=== PATIENT | male | born 1975 | race Caucasian/White ===

== ENCOUNTER 2019-07-30 16:57 | Emergency (ER) | payer OTHER ==
[~2019-07-30] VITALS: Ht 167.6 cm; Wt 79.4 kg
[~2019-07-30 16:57] MED LIST: BENTYL 20 MG TA20 M1 PO; CLARITIN10 MG PO; ZOFRAN ODT4 MG PO
[2019-07-30] MEDS ORDERED: KEFLEX500 M1 PO (17:17)
[2019-07-30] MEDS ORDERED: NORCO 5-325 TA1 EAC1 PO (18:12)
[2019-07-30] MEDS ORDERED: BACTRIM DS TAB1 EACH PO (18:12)
[2019-07-30 18:24] VITALS: BP 159/90
== END 2019-07-30 18:25 | disposition home or self-care (01) ==
LOC: M.ERS 16:57
DX: L03.031 Cellulitis of right toe (principal)

== ENCOUNTER 2019-08-02 17:12 | Inpatient (IN) | payer OTHER ==
[~2019-08-02] VITALS: Ht 167.6 cm; Wt 88.5 kg
--- NOTE | ~2019-08-02 | CON ---
[address] [address] CONSULTATION Name: BIN Room: [address] IN M.R.#: [id number] Admission: 08/02/19 Attend Phys: Miki Tai Discharge: Date of : 75 Report #: [id number] THIS REPORT FOR: //name// CC: Caterina White DATE OF SERVICE: 08/03/2019 PODIATRY CONSULTATION REASON FOR ADMISSION: Paronychia, right great toe with subungual hematoma. HISTORY OF PRESENT ILLNESS: The patient is a 44-year-old male that contused the right great toe roughly 8 days ago. The patient dropped a can of viscous on his right great toe roughly 8 days ago. He initially had pain and swelling, which somewhat improved, but then worsened over the next several days, particularly in light of his running and activity. He was placed on outpatient cephalexin with no improvement. He is currently on parenteral vancomycin and ceftriaxone with good tolerance. Blood cultures are negative x 2. There has been no culturable drainage from the toe. At this point, he has very low grade pain, the area is minimally tender to palpation. LABORATORY DATA: WBC 4.3, RBC 4.96, hemoglobin 13.5, hematocrit 40.2, and platelets 226. BUN 16, creatinine 0.9, glucose 105. Albumin 4.2. PHYSICAL EXAMINATION: Subungual hematoma to right hallux with minimal inflammation to the proximal nail fold. There is no drainage, granulation, or pain to palpation. DIAGNOSTIC DATA: X-rays were negative for fracture. The toe is moderately edematous. There is no expressible drainage from the nail unit. Strong pedal pulses, normal epicritic sensation to both extremities. IMPRESSION: Contusion, right great toe with subungual hematoma and cellulitis. PLAN: I recommend total toenail avulsion in my office as an outpatient. In the interim, keep toe dry and clean, no gauze necessary. I will see him later this week in my office for followup. By: [id number] Caal DPM /aaliyah
[~2019-08-02 17:12] MED LIST changes: +BACTRIM DS TAB1 EACH PO; +KEFLEX500 M1 PO; +NORCO 5-325 TA1 EAC1 PO
[2019-08-02 17:35] VITALS: BP 179/119
[2019-08-02 18:56] LABS: ABSOLUTE BASOPHILS 0.1 thou/uL (0.0-0.2); ABSOLUTE EOSINOPHILS 0.1 thou/uL (0.0-0.7); ABSOLUTE LYMPHOCYTES 1.7 thou/uL (0.8-5.3); ABSOLUTE MONOCYTES 0.4 thou/uL (0.0-1.2); ABSOLUTE NEUTROPHILS 2.1 thou/uL (1.6-8.1); BASOPHILS 1.2 %; EOSINOPHILS 2.1 %; HEMATOCRIT 40.2 % (42.0-52.0); HEMOGLOBIN 13.5 gm/dL (14.0-18.0); LYMPHOCYTES 38.7 %; MCH 27.3 pg (26.0-34.0); MCHC 33.7 g/dL (28.0-37.0); MONOCYTES 9.4 %; MPV 7.9 fl. (7.2-11.1); NUCLEATED RBCS 0 /100WBC; PLATELET COUNT* 226 thou/uL (150-400); POLYS 48.6 %; RBC 4.96 mil/uL (4.50-6.00); RDW-CV 12.7 % (10.5-14.5); WBC 4.3 thou/uL (4.0-11.0)
[2019-08-02 19:09] LABS: ALBUMIN 4.2 g/dL (3.4-5.0); CALCIUM 8.8 mg/dL (8.5-10.1); CREATININE 0.9 mg/dL (0.6-1.3); POTASSIUM 3.6 mmol/L (3.5-5.1); TOTAL BILIRUBIN 0.2 mg/dL (<0.1-1.0); TOTAL PROTEIN 7.6 g/dL (6.4-8.2)
[2019-08-02 21:36] VITALS: BP 152/98
[2019-08-02 21:50] VITALS: BP 169/106
--- NOTE | 2019-08-02 21:50 | NUR ---
PT ADMITTED TO FLOOR PER CART ACCOMPANIED BY ER STAFF WITH BELONGINGS. ORIENTED TO ROOM AND CALL LITE, HISTORY OBTAINED AND ASSESSMENT PERFORMED-SEE ADMIT NOTES. PT DENIES PAIN AT PRESENT. AOX4. RFA IV SL, FLUIDS TO BE PLACED ON PUMP FOR INFUSION. R GREAT TOE EDEMATOUS AND RED, TOENAIL BLACK. AMBULATES WITH STEADY GAIT IN ROOM. PT STATES HE IS HUNGRY, BOX LUNCH GIVEN. WILL CONTINUE TO MONITOR AND PROVIDE CARES NEEDED. CALL LITE IN EASY REACH.
[2019-08-03] VITALS: BP 145/90
[2019-08-03] MEDS ORDERED: CLARITIN10 MG PO (03:53)
[2019-08-03] MEDS ORDERED: PROPECIA1 MG (03:54)
[2019-08-03 04:00] VITALS: BP 136/95
--- NOTE | 2019-08-03 05:53 | NUR ---
PT SLEPT WELL AFTER SETTLING IN FROM ADMISSION. RFA IVF INFUSING PER PUMP, IV ABX GIVEN ORDERED. HAS DENIED NEED FOR PAIN MED. UP AD SARAH IN ROOM WITH STEADY GAIT, VOIDING INDEP IN BATHROOM. TOLERATING REGULAR DIET. NO LABS THIS MORNING. ID AND PODIATRY TO SEE PT TODAY. ABLE TO USE CALL LITE AND MAKE NEEDS KNOWN.
[2019-08-03 08:49] VITALS: BP 151/103
[2019-08-03 16:29] VITALS: BP 168/101
--- NOTE | 2019-08-03 16:58 | NUR ---
PT A&Ox4. VITALS STABLE. IV PATENT. DENIED N/V. DENIED PAIN. UP AD SARAH. RIGHT GREAT TOE NAIL IS BLACK AND SWOLLEN. CALL LIGHT WITHIN REACH. WILL CONTINUE TO MONITOR.
[2019-08-03 20:00] VITALS: BP 128/77
--- NOTE | 2019-08-04 05:26 | NUR ---
PT SLEPT WELL OVERNIGHT AFTER RECEIVING TYLENOL FOR HEADACHE AT START OF SHIFT. UP AD SARAH IN ROOM TO BATHROOM TO VOID WITHOUT DIFFICULTY. R FA IVF INFUSING PER PUMP, ABX GIVEN ORDERED. NO LABS THIS MORNING, TO HAVE VANC TROUGH LATER TODAY. ABLE TO USE CALL LITE AND MAKE NEEDS KNOWN. CALL LITE IN E[place]Y [place].
--- NOTE | 2019-08-04 07:47 | CON ---
[address] [address] CONSULTATION Name: BIN Room: [address] IN M.R.#: [id number] Admission: 08/02/19 Attend Phys: Miki Tai Discharge: Date of : 75 Report #: [id number] THIS REPORT FOR: //name// CC: Caterina White DATE OF SERVICE: 08/03/2019 INFECTIOUS DISEASE CONSULTATION ATTENDING PHYSICIAN: Dr. White. REASON FOR EVALUATION: Right great toe cellulitis. HISTORY OF PRESENT ILLNESS: Chart reviewed, patient examined. This is a 44-year-old gentleman without significant medical history who sustained an injury to his right great toe. He was barefoot; he dropped a can of biscuits on it roughly 8 days ago. This was initially quite painful, although he continued to do the activity. In fact, he ran within an hour with his family; however, he noted increasing pain and difficulty walking around Saturday of last week. By , it became quite significant. He had seen his primary care who was concerned about a secondary inflammation, perhaps due to infection. He treated him with cephalexin without benefit. It is not clear that he had any systemic illness. No fevers or chills. Appetite has generally been good. No pulmonary or gastrointestinal related complaints. He was evaluated. He was found to have a normal lactic acid. White count was normal at 4.3. He was borderline anemic. Blood cultures are sterile thus far. He is empirically placed on antimicrobial therapy with vancomycin and ceftriaxone. At this point, he is not overtly toxic and not encephalopathic. ALLERGIES: AMOXICILLIN. CURRENT MEDICATIONS: Above noted antibiotics, p.r.n. analgesics and antiemetics. PAST MEDICAL HISTORY: Otherwise, unremarkable. SOCIAL HISTORY: Nonsmoker, occasional ethanol, no illicit drug use. FAMILY HISTORY: Noncontributory. REVIEW OF SYSTEMS: Otherwise, unremarkable 10-point review of systems with exception of the above. PHYSICAL EXAMINATION: GENERAL: He is alert, cooperative, appropriate, [place] [id number] CONSULTATION Name: [facility] [place] Room: [address] [facility]#: [id number] Admission: 08/02/19 Attend Phys: Miki Tai Discharge: Date of : 75 Report #: [id number] VITAL SIGNS: Temperature 98.7, pulse 71, respirations 16, blood pressure 151/103. SKIN: Warm, dry, no rashes. HEENT: Normocephalic. Extraocular muscles intact. NECK: Supple. LUNGS: Clear to auscultation. HEART: Regular. I do not appreciate a murmur. ABDOMEN: Soft, nontender, nondistended. EXTREMITIES: Distal right lower extremity was evaluated, great toe in particular has a contused appearance associated with the great toe dorsally, not exquisitely tender to palpation. There are no bullous lesions. There are no ulcers at this point. GENITOURINARY: Deferred. RECTAL: Deferred. LABORATORY DATA: Blood cultures sterile thus far. Electrolytes: Sodium 140, potassium 3.6, chloride 103, bicarb is 25, anion gap of 12, BUN and creatinine 16 and 0.9, glucose of 105. LFTs unremarkable. Albumin of 4.2. Total protein of 7.6. Estimated GFR of 92. Lactic acid 0.8. CBC: White count of 4.3, H and H 13.5 which was borderline anemic, hematocrit 40.2, platelets of 226,000. Differential unremarkable. ASSESSMENT AND PLAN: Right great toe inflammation. He has known trauma; however, was concerned about possible secondary infection, perhaps infected hematoma, etc. Reportedly, he had imaging that was unremarkable as outpatient. We will see how he does clinically with empiric antimicrobial therapy at this point. I would expect to transition to oral within 1-2 days and see how he does clinically. At this point, he is certainly not overtly toxic. <ELECTRONICALLY SIGNED> By: Fei Hoover MD 08/04/19 [id number] Hoover MD /nt
[2019-08-04 07:54] VITALS: BP 165/101
[2019-08-04] MEDS ORDERED: DYNACIN100 MG PO (10:24)
[2019-08-04 10:38] VITALS: BP 165/101
--- NOTE | 2019-08-04 11:31 | NUR ---
PT DISCHARGED TO HOME. LEFT UNIT AT 1110 WITH NURSING STAFF AND . IV OUT. PT STABLE UPON DISCHARGE. CAST SHOE SENT WITH PT. FU APPT SET UP WITH DR OSBORNE. PAPER SCRIPT AND CARE NOTES GIVEN.
== END 2019-08-04 11:10 | disposition home or self-care (01) | DRG 603 ==
LOC: M.ERS 17:12 → M.TBA-ER 18:16 → M.ORTHSURG 18:16
PROVIDERS: Physician Assistant; ADMIT Internal Medicine
DX: L03.031 Cellulitis of right toe (principal); S90.211A Contusion of right great toe with damage to nail, initial encounter; W19.XXXA Unspecified fall, initial encounter; Z79.1 Long term (current) use of non-steroidal anti-inflammatories (NSAID); Z88.1 Allergy status to other antibiotic agents; Z79.899 Other long term (current) drug therapy; Y93.89 Activity, other specified; Y92.9 Unspecified place or not applicable; Y99.8 Other external cause status